=== PATIENT | male | born 1985 | race Caucasian/White ===

== ENCOUNTER 2020-06-13 10:14 | Day surgery (SDC) | payer BC, SELFPAY ==
[2020-06-13 10:51] VITALS: BMI 35.2
--- NOTE | 2020-06-13 10:52 | WPDANESEPPF ---
Anes - Initial Pre Proc Eval Procedure: Operation Date: 06/13/20 11:45 Proposed Procedures p Esophagogastroduodenoscopy - Sven Gandhi MD Date/Time: 06/13/20 10:52 Surgeon: Sven Gandhi MD Pre Op Diagnosis: Possible Foreign Body Patient Data Age: 35 Gender: M Height: Weight: Allergies Allergy/AdvReac Type Severity Reaction Status Date / Time No Known Allergies Allergy Verified 06/13/20 10:49 Home Medications Medication Instructions Recorded Confirmed Type bupropion HCl 150 mg 24 hr tablet, 150 mg PO QAM #30 tablet 05/26/20 06/13/20 Rx extended release famotidine [Pepcid] 20 mg PO DAILY 06/13/20 06/13/20 History loratadine [Claritin] 10 mg PO DAILY 06/13/20 06/13/20 History Patient hx anesthesia problems: none Family hx anesthesia problems: none [facility], [facility] Past Medical History Medical History (Updated 06/13/20 @ 08:13 by Brian Melvin DO) Chronic sinusitis Depression Elevated blood pressure reading in office without diagnosis of hypertension TERESSA (generalized anxiety disorder) Hypercholesterolemia Surgical History Surgical History H/O: vasectomy 2017 Social History Social History Smoking status: Never smoker Tobacco type: cigarettes Alcohol intake: never Substance use: never Substance use type: does not use Anes - Eval Final PreProcedure Day of Procedure 06/13/20 10:52 Patient weight: obese Heart: regular rate and rhythm Lungs: clear to auscultation Airway: Mallampati scale class II Neurological: alert and oriented Last oral intake: >/= 8 hours and 4 hours (coffee with little cream; water) ASA classification: II Emergent: no Anesthetic plan: proceed Anesthesia type and monitoring: general GIVS and standard monitoring Informed Consent: The patient's anesthetic plan and its attendant risks and benefits were discussed with the patient/family/POA. Questions were solicited and answers provided to the satisfaction of the patient/family/POA.
[2020-06-13 11:04] VITALS: BP 154/99; PULSE 79; RESP 22; TEMP 36.8; O2SAT 98
[2020-06-13] MEDS: LACTATED RINGERS 1,000 ML 150 ML IV CONT (11:13)
--- NOTE | 2020-06-13 12:15 | WPDGICN ---
Assessment and Plan Assessment and plan (1) Dysphagia: Code(s): R13.10 - Dysphagia, unspecified Status: Acute Assessment and Plan: he was sent to us today after he was evaluated by his PCP because new onset of dysphagia. will proceed with urgent EGD, assess if food bolus, then consider biopsies (2) Chronic sinusitis: Code(s): J32.9 - Chronic sinusitis, unspecified Status: Acute Assessment and Plan: he also will see ENT (3) Eustachian tube dysfunction: Code(s): H69.80 - Other specified disorders of Eustachian tube, unspecified ear Status: Acute GI Consult Note Consult date/time: 06/13/20 12:15 Reason for consult: dysphagia HPI: Gus Marquez is a 35 year old male with sinus pressure and ear pain but 2 days ago difficulty swallowing after had potato, he feels that food is not going down. Earlier this morning he went to see his PCP and referred for urgent EGD to assess if food bolus. He never had EGD, he is using pepcid and claritin for allergy. Review of Systems Constitutional: Constitutional: Denies headache(s) and Denies weakness Eyes: Eyes: Denies blurry vision ENT: Reports Normal hearing present, Denies headache(s) and Denies neck pain Cardiovascular: Cardiovascular: Denies chest pain and Denies dyspnea Respiratory: Respiratory: Denies dyspnea Gastrointestinal: Gastrointestinal: Reports no additional gastrointestinal complaints Genitourinary: Genitourinary: Denies dysuria Musculoskeletal: Musculoskeletal: Denies neck pain Integumentary/Breasts: Skin/Breast: Denies dry skin Neurologic: Reports Normal hearing present, Denies headache(s) and Denies weakness Psychiatric: Psychiatric: Denies anxiety Endocrine: Endocrine: Denies change in body appearance Hematologic/Lymphatic: Hematologic/Lymphatic: Denies easy bleeding Allergic/Immunologic: Allergic/Immunologic: Denies urticaria PMFSH Past Medical History Medical History (Updated 06/13/20 @ 12:17 by Sven Gandhi MD) Chronic sinusitis Depression Dysphagia Elevated blood pressure reading in office without diagnosis of hypertension TERESSA (generalized anxiety disorder) Hypercholesterolemia Surgical History Surgical History H/O: vasectomy 2017 Social History Social History (Reviewed 08/18/20 @ 07:00 by Ely Whelan Smoking status: Never smoker Tobacco type: cigarettes Alcohol intake: never Substance use: never Substance use type: does not use Meds Home Medications and Allergies Home Medications Medication Instructions Recorded Confirmed Type bupropion HCl 150 mg 24 hr tablet, 150 mg PO QAM #30 tablet 05/26/20 06/13/20 Rx extended release famotidine [Pepcid] 20 mg PO DAILY 06/13/20 06/13/20 History loratadine [Claritin] 10 mg PO DAILY 06/13/20 06/13/20 History Allergies Allergy/AdvReac Type Severity Reaction Status Date / Time No Known Allergies Allergy Verified 06/13/20 10:49 Vital Signs Vital Signs - 24 hr 06/13/20 11:04 Temperature 98.3 F Pulse Rate 79 Respiratory Rate 22 H Blood Pressure 154/99 H Pulse Oximetry 98 Exam Const: General: comfortable and no acute distress HENMT: General nose exam: Normal nares present Eyes: General: appearance normal, both eyes and all related structures Neck: Neck: no JVD Resp: Auscultation: clear to auscultation bilaterally Cardio: Rate: regular rate Rhythm: regular rhythm GI: Inspection: non-distended GI Palp: Yes Soft to palpation Skin: General skin exam: normal color Neuro: General: gait normal Speech: normal speech Extrem: General: normal to inspection Psych: Mental Status: mental status grossly normal
[2020-06-13 12:34] VITALS: BP 120/75; PULSE 88; RESP 20; O2SAT 97
[2020-06-13 12:44] VITALS: BP 114/80; PULSE 87; RESP 24; O2SAT 97
[2020-06-13 12:54] VITALS: BP 119/65; PULSE 83; RESP 21; O2SAT 96
== END 2020-06-13 13:34 | disposition home or self-care (01) ==
PROVIDERS: PCP Nurse Practitioner Family; Visit Provider Internal Medicine Gastroenterology
PROC: 0DJ08ZZ Inspection of Upper Intestinal Tract, Via Natural or Artificial Opening Endoscopic (ICD-10-PCS; CPT 43235; principal; 2020-06-13 11:45)
DX: R13.10 Dysphagia, unspecified (principal); K29.50 Unspecified chronic gastritis without bleeding; K21.0 Gastro-esophageal reflux disease with esophagitis; J32.9 Chronic sinusitis, unspecified; H69.80 Other specified disorders of Eustachian tube, unspecified ear; F32.9 Major depressive disorder, single episode, unspecified; F41.1 Generalized anxiety disorder; E78.00 Pure hypercholesterolemia, unspecified; E66.9 Obesity, unspecified; Z68.35 Body mass index [BMI] 35.0-35.9, adult
CPT/HCPCS: 43239; 88305; J2704; J7120

== ENCOUNTER 2020-09-28 08:21 | Outpatient (CLI) | payer BC, SELFPAY ==
[2020-09-28 08:55] LABS: SARS-CoV-2 Ag Positive (Negative)
== END 2020-09-28 08:22 | disposition home or self-care (01) ==
PROVIDERS: PCP Nurse Practitioner Family; Visit Provider Nurse Practitioner Family
DX: U07.1 COVID-19 (principal)
CPT/HCPCS: 87426

== ENCOUNTER 2023-03-04 14:16 | Outpatient (CLI) | payer BC, SELFPAY ==
--- NOTE | ~2023-03-04 | XR_ITS ---
Cervical Spine: AP, lateral, open-mouth views Clinical History: Pain Findings: There is straightening of the normal cervical lordosis. No fracture or subluxation evident. There is mild degenerative disc change at C5-C6 and C6-C7. Pre-vertebral soft tissues are unremarkab le. Impression: Mild degenerative change, as above. Reviewed, dictated and finalized at location . Impression: Mild degenerative change, as above.
== END 2023-03-04 14:17 | disposition home or self-care (01) ==
LOC: CHSIMG 14:18
PROVIDERS: PCP Nurse Practitioner Family; Visit Provider Nurse Practitioner Family
DX: M54.2 Cervicalgia (principal)
CPT/HCPCS: 72040

== ENCOUNTER 2023-03-10 16:00 | Outpatient (RCR) | payer BC, SELFPAY ==
--- NOTE | 2023-03-11 07:14 | PTOPEVAL1 ---
Assessment and note entered by Karen Orozco DPT Evaluation Information Assessment Status Evaluation Diagnosis neck pain Onset 03/04/23 Subjective Information Patient reports neck pain that started a few months ago. He reports he thought it was his mattress/pillows and got a new set with no change. He also reports he went to the chiropractor with no relief. He also reports was also prescribed an anti inflammatory with no relief. Patient reports pain increase with turning head, driving, and sleeping. He reports he has tingling in both arm with elbow flexion but reports this issue prior to onset of neck pain. He reports he only gets headaches when pain is at its highest. 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 He demosntrates decreased cervical ROM, cervical spine hypomobility, and tenderness at B upper traps impairing his ability to drive, sleep and perform house hold tasks. He would benefit from skilled PT to address impairments and return to PLOF. Plan of Care Interventions Aquatic Therapy,Electrical Stimulation,Hot Pack/ Cold Pack,Manual Therapy,Neuro Re-education, Patient/Caregiver Educati,Therapeutic Activities, Therapeutic Exercise,Self-Care/Home Management PT Services Indicated Yes Treatment Frequency and 2x weekly for 12 visits Duration These treatments will address the objective and functional deficits as defined above. The patient will be advanced safely and appropriately in order for the patient to progress towards his/her prior level of function. Additional exercises will be introduced and as well as a comprehensive home exercise program upon discharge, if needed, ?to ensure carryover of functional gains achieved in the clinic. This treatment plan has been reviewed and agreement upon by the patient.
== END 2023-04-17 23:59 | disposition home or self-care (01) ==
LOC: CHSPT 16:00
PROVIDERS: PCP Nurse Practitioner Family; Visit Provider Nurse Practitioner Family
DX: M54.2 Cervicalgia (principal)
CPT/HCPCS: 97012; 97014; 97110; 97140; 97161; G0283

== ENCOUNTER 2023-09-01 11:06 | Outpatient (CLI) | payer BC, SELFPAY ==
[2023-09-01 11:27] LABS: Basophils Absolute Auto 0.04 K/mm3 (0.00-0.10); Basophils Percent Auto 0.8 % (0.0-1.0); Eosinophils Absolute Auto 0.19 K/mm3 (0.02-0.50); Eosinophils Percent Auto 3.7 % (1.0-6.0); Hematocrit 49.7 % (40.0-54.0); Hemoglobin 17.2 g/dL (14.0-18.0); Immature Granulocyte Absolute 0.01 K/mm3 (0.00-0.00); Immature Granulocyte Percent A 0.2 % (0.0-0.0); Lymphocytes Absolute Auto 1.79 K/mm3 (1.10-4.50); Lymphocytes Percent Auto 34.4 % (18.0-42.0); Mean Corpuscular HGB Conc 34.6 g/dL (32.0-36.0); Mean Corpuscular Volume 89.7 fL (78.0-102.0); Mean Platelet Volume 10.6 fl (8.7-11.0); Monocytes Absolute Auto 0.31 K/mm3 (0.10-0.90); Neutrophils Absolute Auto 2.9 K/mm3 (1.7-7.2); Neutrophils Percent Auto 54.9 % (50.0-70.0); Platelet Count Result 283 K/mm3 (150-420); Red Blood Count 5.54 M/mm3 (4.70-6.10); White Blood Count 5.2 K/mm3 (4.8-10.8)
[2023-09-01 11:52] LABS: Alanine Aminotransferase 92 U/L (16-63); Albumin Level 3.9 g/dL (3.4-5.0); Alkaline Phosphatase 85 U/L (46-116); Anion Gap 11 mmol/L (8-16); Aspartate Amino Transferase 29 U/L (15-37); Bilirubin,Total 0.8 mg/dL (0.00-1.00); Blood Urea Nitrogen 13 mg/dL (7-18); Calcium 9.2 mg/dL (8.5-10.1); Carbon Dioxide 25 mmol/L (21-32); Chloride 103 mmol/L (98-108); Estimated Glomerular Filt Rate > 60; Glucose 176 mg/dL (70-99); Osmolality Calculated 292 mOsm/kg (285-295); Potassium 4.5 mmol/L (3.5-5.1); Sodium 139 mmol/L (136-145); Total Protein 7.5 g/dL (6.4-8.2)
[2023-09-01 11:53] LABS: CRP < 0.5 mg/dL (0.0-0.9)
[2023-09-02 08:28] LABS: Hemoglobin A1C 7.8 % (<5.7)
[2023-09-03 21:16] LABS: H pylori, Urea Breath NOT DETECTED (NOT DETECTED)
== END 2023-09-01 11:07 | disposition home or self-care (01) ==
LOC: CHSLAB 11:08
PROVIDERS: PCP Nurse Practitioner Family; Visit Provider Family Medicine
DX: R73.09 Other abnormal glucose (principal); R19.7 Diarrhea, unspecified; K29.70 Gastritis, unspecified, without bleeding
CPT/HCPCS: 36415; 80053; 83013; 83036; 85025; 86140

== ENCOUNTER 2024-07-15 09:54 | Outpatient (CLI) | payer BC, SELFPAY ==
[2024-07-15 10:12] LABS: Basophils Absolute Auto 0.06 K/mm3 (0.00-0.10); Basophils Percent Auto 0.8 % (0.0-1.0); Eosinophils Absolute Auto 0.23 K/mm3 (0.02-0.50); Eosinophils Percent Auto 3.2 % (1.0-6.0); Hematocrit 51.4 % (40.0-54.0); Hemoglobin 17.9 g/dL (14.0-18.0); Immature Granulocyte Absolute 0.03 K/mm3 (0.00-0.00); Immature Granulocyte Percent A 0.4 % (0.0-0.0); Lymphocytes Absolute Auto 2.33 K/mm3 (1.10-4.50); Lymphocytes Percent Auto 32.1 % (18.0-42.0); Mean Corpuscular HGB Conc 34.8 g/dL (32-36); Mean Corpuscular Hemoglobin 30.8 pg (27.0-31.0); Mean Corpuscular Volume 88.3 fL (78.0-102.0); Mean Platelet Volume 10.1 fl (8.7-11.0); Monocytes Absolute Auto 0.54 K/mm3 (0.10-0.90); Monocytes Percent Auto 7.4 % (2.0-11.0); Neutrophils Absolute Auto 4.06 K/mm3 (1.70-7.20); Neutrophils Percent Auto 56.1 % (50.0-70.0); Platelet Count Result 320 K/mm3 (150-420); Red Blood Count 5.82 M/mm3 (4.70-6.10); Red Cell Distribution Width 12.3 % (11.6-14.4); White Blood Count 7.3 K/mm3 (4.8-10.8)
[2024-07-15 10:30] LABS: Hemoglobin A1C 7.1 % (<5.7)
[2024-07-15 11:01] LABS: Alanine Aminotransferase 74 U/L (16-63); Albumin Level 4.2 g/dL (3.4-5.0); Alkaline Phosphatase 80 U/L (46-116); Amylase 35 U/L (25-115); Anion Gap 7 mmol/L (4-12); Aspartate Amino Transferase 24 U/L (15-37); Bilirubin,Total 0.9 mg/dL (0.00-1.00); Blood Urea Nitrogen 9 mg/dL (7-18); Calcium 9.3 mg/dL (8.5-10.1); Carbon Dioxide 30 mmol/L (21-32); Chloride 101 mmol/L (98-108); Cholesterol 216 mg/dL (0-200); Estimated Glomerular Filt Rate > 60; Glucose 152 mg/dL (70-99); HDL Direct 30 mg/dL (40-60); LDL Cholesterol Calculated 122 mg/dL (<130); Lipase 49 U/L (16-77); Osmolality Calculated 287 mOsm/kg (285-295); Potassium 4.4 mmol/L (3.5-5.1); Sodium 138 mmol/L (136-145); Total Protein 7.7 g/dL (6.4-8.2); Triglycerides 318 mg/dL (0-150)
== END 2024-07-15 09:55 | disposition home or self-care (01) ==
LOC: CHSLAB 09:56
PROVIDERS: PCP Nurse Practitioner Family; Visit Provider Nurse Practitioner Family
DX: K29.70 Gastritis, unspecified, without bleeding (principal); E78.00 Pure hypercholesterolemia, unspecified; Z13.6 Encounter for screening for cardiovascular disorders; E11.9 Type 2 diabetes mellitus without complications; R11.2 Nausea with vomiting, unspecified
CPT/HCPCS: 36415; 80053; 80061; 82150; 83036; 83690; 85025

== ENCOUNTER 2025-01-10 00:28 | Day surgery (SDC) | payer BC, SELFPAY ==
[2025-01-03 15:54] VITALS: BMI 34.1
[2025-01-10 10:36] VITALS: BP 131/94; PULSE 85; RESP 18; TEMP 36.2; O2SAT 85
[2025-01-10] MEDS: LACTATED RINGERS 1,000 ML 150 ML IV CONT (10:46)
--- NOTE | 2025-01-10 10:56 | P.PNAN_ITS ---
Anes - Initial Pre Proc Eval Procedure: Operation Date: 01/10/25 11:30 Proposed Procedures p Esophagogastroduodenoscopy & Colonoscopy - Sven Gandhi MD Date/Time: 01/10/25 10:56 Surgeon: Sven Gandhi MD Pre Op Diagnosis: Constipation,Nausea with vomiting,Diarrhea, Patient Data Age: 39 Gender: M Height: 1.93 m Weight: 127.5 kg Last Vital Signs Temp 36.2 C L 01/10/25 10:36 Pulse 85 01/10/25 10:36 Resp 18 01/10/25 10:36 BP 131/94 H 01/10/25 10:36 Pulse Ox 85 L 01/10/25 10:36 O2 Del Method Room Air 01/10/25 10:36 Allergies Allergy/AdvReac Type Severity Reaction Status Date / Time Bee stings Allergy Intermediate Unknown Uncoded 01/10/25 10:31 Home Medications ?Medication ?Instructions ?Recorded ?Confirmed ?Type diclofenac sodium 50 mg 50 mg PO TID PRN pain #45 tabs 03/04/23 01/03/25 Rx tablet,delayed release cyclobenzaprine 10 mg tablet 10 mg PO .HS PRN muscle spasm #30 05/05/23 01/03/25 Rx tabs sucralfate 1 gram tablet (Carafate) 1 g PO TID PRN nausea #90 tabs 07/15/24 01/03/25 Rx semaglutide 1 mg/dose (4 mg/3 mL) 1 mg (0.75 mL) subcut WEEKLY #9 mL 09/15/24 01/10/25 Rx subcutaneous pen injector (Ozempic) ondansetron 4 mg disintegrating 4 mg PO Q8H PRN nausea and 11/17/24 01/03/25 Rx tablet vomiting #30 tabs linaclotide 72 mcg capsule 72 mcg PO DAILY #30 caps 11/29/24 01/03/25 Rx (Linzess) pantoprazole 40 mg tablet,delayed 40 mg PO QAM #30 tabs 11/29/24 01/10/25 Rx release dicyclomine 10 mg capsule 10 mg PO TID PRN abdominal pain 01/03/25 01/03/25 History escitalopram oxalate 10 mg tablet 10 mg PO DAILY 3 months #90 tabs 01/03/25 01/10/25 Rx sertraline 25 mg tablet 25 mg PO Q24H 01/03/25 01/10/25 History Patient hx anesthesia problems: none Family hx anesthesia problems: none Results Review: All pre-operative results and documents have been reviewed as part of the pre- operative evaluation. [facility] Past Medical History Medical History Heartburn Left knee pain Eustachian tube dysfunction Cough Dysfunction of right eustachian tube Dysphagia Chronic sinusitis Eustachian tube dysfunction Elevated blood pressure reading in office without diagnosis of hypertension Depression Hypercholesterolemia TERESSA (generalized anxiety disorder) Surgical History Surgical History H/O: vasectomy 2016 Family History Family History Father Hypertension Father Family history of lung cancer Family history of primary malignant neoplasm of liver Family history of malignant neoplasm of brain Father Family history of type 2 diabetes mellitus Social History Social History Smoking status: Never smoker Tobacco type: cigarettes Alcohol intake: current Substance use: never Substance use type: does not use Living arrangements: with family Spiritual care concerns: No Anes - Eval Final PreProcedure Day of Procedure 01/10/25 10:56 Patient weight: obese Heart: regular rate and rhythm Lungs: clear to auscultation Airway: Mallampati scale class II Neurological: alert and oriented Last oral intake: >/= 8 hours ASA classification: II Emergent: no Anesthetic plan: proceed Anesthesia type and monitoring: general GIVS and standard monitoring Results Review: All pre-operative results and documents have been reviewed as part of the pre- operative evaluation. Informed Consent: The patient's anesthetic plan and its attendant risks and benefits were discussed with the patient/family/POA. Questions were solicited and answers provided to the satisfaction of the patient/family/POA.
--- NOTE | 2025-01-10 11:23 | PM.HPGS ---
History of Present Illness History of Present Illness Consent: Risks, benefits, and alternatives have been discussed and questions answered. Patient agrees to proceed with procedure. Chief complaint: Constipation,Nausea with vomiting,Diarrhea, Narrative: Gus Marquez is a 39 year old male with h/o gerd on ppi, father had esophageal ca. Last egd 2019, also had episode of colitis when he went to [facility], h/o intermittent abdominal cramping. Never had colonoscopy Review of Systems Review of Systems: All systems reviewed & are unremarkable except as noted in HPI and below PMFSH Past Medical History Medical History (Updated 01/10/25 @ 11:26 by Sven Gandhi MD) History of colitis Heartburn Left knee pain Eustachian tube dysfunction Cough Dysfunction of right eustachian tube Dysphagia Chronic sinusitis Eustachian tube dysfunction Elevated blood pressure reading in office without diagnosis of hypertension Depression Hypercholesterolemia TERESSA (generalized anxiety disorder) Surgical History Surgical History H/O: vasectomy 2016 Family History Family History Father Hypertension Father Family history of lung cancer Family history of primary malignant neoplasm of liver Family history of malignant neoplasm of brain Father Family history of type 2 diabetes mellitus Social History Social History Smoking status: Never smoker Tobacco type: cigarettes Alcohol intake: current Substance use: never Substance use type: does not use Living arrangements: with family Spiritual care concerns: No Meds Home Medications and Allergies Home Medications ?Medication ?Instructions ?Recorded ?Confirmed ?Type diclofenac sodium 50 mg 50 mg PO TID PRN pain #45 tabs 03/04/23 01/03/25 Rx tablet,delayed release cyclobenzaprine 10 mg tablet 10 mg PO .HS PRN muscle spasm #30 05/05/23 01/03/25 Rx tabs sucralfate 1 gram tablet (Carafate) 1 g PO TID PRN nausea #90 tabs 07/15/24 01/03/25 Rx semaglutide 1 mg/dose (4 mg/3 mL) 1 mg (0.75 mL) subcut WEEKLY #9 mL 09/15/24 01/10/25 Rx subcutaneous pen injector (Ozempic) ondansetron 4 mg disintegrating 4 mg PO Q8H PRN nausea and 11/17/24 01/03/25 Rx tablet vomiting #30 tabs linaclotide 72 mcg capsule 72 mcg PO DAILY #30 caps 11/29/24 01/03/25 Rx (Linzess) pantoprazole 40 mg tablet,delayed 40 mg PO QAM #30 tabs 11/29/24 01/10/25 Rx release dicyclomine 10 mg capsule 10 mg PO TID PRN abdominal pain 01/03/25 01/03/25 History escitalopram oxalate 10 mg tablet 10 mg PO DAILY 3 months #90 tabs 01/03/25 01/10/25 Rx sertraline 25 mg tablet 25 mg PO Q24H 01/03/25 01/10/25 History Allergies Allergy/AdvReac Type Severity Reaction Status Date / Time Bee stings Allergy Intermediate Unknown Uncoded 01/10/25 10:31 Vital Signs Vital Signs - 24 hr 01/10/25 10:36 Temperature 97.2 F L Pulse Rate 85 Respiratory Rate 18 Blood Pressure 131/94 H Pulse Oximetry 85 L Oxygen Delivery Room Air Exam Const: General: comfortable and no acute distress HENMT: Face/Nose/Sinus: Normal nares present Eyes: General: appearance normal, both eyes and all related structures Neck: Neck: no JVD Resp: Auscultation: clear to auscultation bilaterally Cardio: Rate: regular rate Rhythm: regular rhythm GI: Inspection: non-distended GI Palp: Yes Soft to palpation Skin: General skin exam: normal color Neuro: General: gait normal Speech: normal speech Extrem: General: normal to inspection Psych: Mental Status: mental status grossly normal Assessment and Plan Assessment and plan (1) GERD (gastroesophageal reflux disease): Code(s): K21.9 - Gastro-esophageal reflux disease without esophagitis Status: Acute (2) Family history of esophageal cancer: Code(s): Z80.0 - Family history of malignant neoplasm of digestive organs Status: Acute Assessment and Plan: egd (3) History of colitis: Code(s): Z87.19 - Personal history of other diseases of the digestive system Status: Acute Assessment and Plan: colonoscopy
--- NOTE | 2025-01-10 11:45 | SUR.OPER ---
EGD end: 1134, Colon start time: 1137
[2025-01-10 11:51] VITALS: BP 93/67; PULSE 87; RESP 18; O2SAT 97
[2025-01-10 12:01] VITALS: BP 109/60; PULSE 81; RESP 16; O2SAT 97
[2025-01-10 12:11] VITALS: BP 123/86; PULSE 78; RESP 21; O2SAT 100
== END 2025-01-10 12:28 | disposition home or self-care (01) ==
PROVIDERS: PCP Nurse Practitioner Family; Visit Provider Internal Medicine Gastroenterology
PROC: 0DJ08ZZ Inspection of Upper Intestinal Tract, Via Natural or Artificial Opening Endoscopic (ICD-10-PCS; CPT 45378; principal; 2025-01-10 11:30)
DX: K29.50 Unspecified chronic gastritis without bleeding (principal); K21.9 Gastro-esophageal reflux disease without esophagitis; K64.8 Other hemorrhoids; K57.30 Diverticulosis of large intestine without perforation or abscess without bleeding; E78.00 Pure hypercholesterolemia, unspecified; F41.9 Anxiety disorder, unspecified; J32.9 Chronic sinusitis, unspecified; R03.0 Elevated blood-pressure reading, without diagnosis of hypertension; F32.A Depression, unspecified; Z79.85 Long-term (current) use of injectable non-insulin antidiabetic drugs; Z98.890 Other specified postprocedural states; Z87.19 Personal history of other diseases of the digestive system; Z80.0 Family history of malignant neoplasm of digestive organs; Z80.1 Family history of malignant neoplasm of trachea, bronchus and lung; Z80.8 Family history of malignant neoplasm of other organs or systems
CPT/HCPCS: 43239; 45378; 88305; J2003; J2704; J7120